=== PATIENT | male | born 1960 | race Caucasian/White ===

== ENCOUNTER 2019-02-06 14:56 | Emergency (ER) | payer BC, OTHER ==
[2019-02-06 14:59] VITALS: BP 145/82
--- NOTE | 2019-02-06 15:09 | EDM.PDOC ---
ED HPI GENERAL MEDICAL PROBLEM - General Chief Complaint: Upper Extremity Injury/Pain Stated Complaint: right shoulder pain Time Seen by Provider: 02/06/19 15:00 Source of Information: Reports: Patient, Old Records ([facility] EMR. No paper hospital chart available.) History Limitations: Reports: No Limitations - History of Present Illness INITIAL COMMENTS - FREE TEXT/NARRATIVE: The patient was brought to the emergency room via transport vehicle from [facility] for evaluation of a Workmen's Compensation injury, which occurred at about 14: 00 hours this afternoon. Patient was pulling on a torque wrench when he heard a sudden "pop" in his right shoulder with additional right superior chest wall pain, which he rates at 8/10. The patient did have ice packs applied at [facility] with no additional medications or treatment prior to arrival. He has not injured these areas in the past. No history of fall, injury, paresthesias, neurological deficits, etc. The patient denies any other chest pain/pressure, heart flutter, dizziness, orthostasis, orthopnea, diaphoresis, paresthesias, recent decreased exercise tolerance, or any other anginal-type symptoms. No recent history of abdominal pain, heartburn, nausea, diarrhea, melena, gross hematochezia, or any food intolerance, including fatty foods, etc.. His arthritis is otherwise stable. He denies any gross hematuria, colic, or other UTI symptoms. The patient also denies any recent fever, cough, wheezing, dyspnea , etc.. Onset: Today, Sudden Onset Date: 02/06/19 Onset Time: 14:00 Duration: Constant Location: Reports: Chest (As above), Upper Extremity, Right, Radiates to (As above). Denies: Head, Face, Neck, Abdomen, Back, Pelvis, Upper Extremity, Left , Lower Extremity, Left, Lower Extremity, Right, Generalized Quality: Reports: Same as Previous Episode, Sharp Severity: Moderate Improves with: Reports: Rest Worsens with: Reports: Movement Context: Reports: Trauma (As above) Associated Symptoms: Denies: Confusion, Chest Pain, Cough, Diaphoresis, Fever/ Chills, Headaches, Loss of Appetite, Malaise, Nausea/Vomiting, Rash, Seizure, Shortness of Breath, Syncope, Weakness Treatments FELT CHECKER: Reports: Cold Therapy. Denies: Acetaminophen, Aspirin, NSAIDS Right Shoulder Pain Score (Numeric/FACES): 8 - Related Data Allergies Allergy/AdvReac Type Severity Reaction Status Date / Time No Known Allergies Allergy Verified 02/06/19 15:00 Home Meds: Home Meds Albuterol Sulfate [Proair Hfa] 2 puff INH Q6HR PRN 02/04/16 [History] Fenofibrate Nanocrystallized [Fenofibrate] 145 mg PO DAILY 02/04/16 [History] Multivitamin [Multi-Vitamin Daily] 1 cap PO DAILY 02/04/16 [History] Naproxen Sodium [Aleve] 440 mg PO DAILY 02/04/16 [History] Omeprazole [Prilosec] 20 mg PO ACBREAKFAST 02/04/16 [History] amLODIPine [Norvasc] 10 mg PO DAILY 02/04/16 [History] Past Medical History HEENT History: Reports: Allergic Rhinitis. Denies: Cataract, Glaucoma, Hard of Hearing, Impaired Vision, Macular Degeneration Cardiovascular History: Reports: High Cholesterol, Hypertension, Other (See Below). Denies: Afib, Aneurysm, Arrhythmia, Blood Clots/VTE/DVT, CAD, Heart Failure, Heart Murmur, ND, Syncope Other Cardiovascular History: Dyslipidemia. Gastrointestinal History: Reports: Colon Polyp, GERD, Other (See Below) Other Gastrointestinal History: History of unknown type of colonic polyps excised on 05/21/09. Genitourinary History: Reports: BPH Musculoskeletal History: Reports: Arthritis, Back Pain, Chronic, Gout, Neck Pain , Chronic, Osteoarthritis. Denies: Fracture, RA, SLE - Infectious Disease History Infectious Disease History: Reports: Other (See Below) Other Infectious Disease History: West Nile virus diagnosed on 12/06/08. - Past Surgical History GI Surgical History: Reports: Colonoscopy, Polypectomy, Other (See Below) Other GI Surgeries/Procedures: Last colonoscopy on 02/05/16 was normal with previous excision of colonic polyps of unknown type on 05/21/09. Musculoskeletal Surgical History: Reports: Hip Replacement, Joint Replacement, Other (See Below) Other Musculoskeletal Surgeries/Procedures:: Left hip THC in 2007 Social & Family History - Family History Oncologic: Reports: Colon - Tobacco Use Smoking Status *Q: Former Smoker Tobacco Use Within Last Twelve Months: No Years of Tobacco use: 12 Packs/Tins Daily: 0.1 Used Tobacco, but Quit: Yes Month/Year Tobacco Last Used: Chewed about one can of tobacco per week between ages 17 and 29. Smoking Cessation Information Provided To Patient: No Second Hand Smoke Exposure: No Second Hand Smoke Education Provided: No - Living Situation & Occupation Living situation: Reports: (September 1993. No children), with Family Occupation: Employed ([employer]) Review of Systems - Review of Systems Review Of Systems: ROS reveals no pertinent complaints other than HPI. ED EXAM, GENERAL - Physical Exam Exam: See Below Exam Limited By: No Limitations General Appearance: Alert, WD/WN, No Apparent Distress Head: Atraumatic, Normocephalic. No: Facial Swelling, Facial Tenderness, Sinus Tenderness Neck: Normal Inspection, Supple, Non-Tender, Full Range of Motion. No: Lymphadenopathy (L), Lymphadenopathy (R), Thyromegaly Respiratory/Chest: No Respiratory Distress, Lungs Clear, Normal Breath Sounds, No Accessory Muscle Use. No: Chest Non-Tender (Moderate palpation pain over the MCL and mid infraclavicular area with no crepitation, deformity, ecchymosis , swelling, etc.), Pleural Rub, Retractions Cardiovascular: Normal Peripheral Pulses, Regular Rate, Rhythm, No Edema, No Gallop, No JVD, No Murmur, No Rub. No: Gallop/S3, Gallop/S4, Friction Rub Peripheral Pulses: 2+: Radial (L), Radial (R) GI/Abdominal: Normal Bowel Sounds, Soft, Non-Tender, No Organomegaly, No Distention, No Abnormal Bruit, No Mass, Pelvis Stable. No: Guarding (Male) Exam: Deferred Rectal (Males) Exam: Deferred Back Exam: Normal Inspection, Full Range of Motion. No: CVA Tenderness (L), CVA Tenderness (R), Muscle Spasm Extremities: No Pedal Edema, Normal Capillary Refill, Arm Pain (Mild to moderate palpation pain over the anterior joint space of the right shoulder with no crepitation, effusion, deformity, subluxation, etc.), Limited Range of Motion (Mild in right shoulder secondary to discomfort, however patient is able to abduct his arm/hand to the left shoulder). No: Non-Tender, Joint Swelling, Armond's Sign, Increased Warmth Neurological: Alert, Oriented, CN II-XII Intact, Normal Cognition, Normal Gait, Normal Reflexes, No Motor/Sensory Deficits Psychiatric: Normal Affect, Normal Mood Skin Exam: Warm, Dry, Intact, Normal Color, No Rash. No: Diaphoretic, Wound/ Incision Lymphatic: No Adenopathy Course - Vital Signs Last Recorded V/S: Last Vital Signs Temp 37.1 C 02/06/19 14:56 Pulse 76 02/06/19 14:56 Resp 20 02/06/19 14:56 BP 145/82 H 02/06/19 14:56 Pulse Ox 100 02/06/19 14:56 Vital Signs - 24 hr 02/06/19 14:56 Temperature [ 37.1 C Oral] Pulse, 76 Peripheral [ Left Pulse Oximetry] Respiratory 20 Rate Blood Pressure 145/82 H [Left Upper Arm ] O2 Sat by Pulse 100 Oximetry - Orders/Labs/Meds Orders: Active Orders 24 hr Category Date Time Status Ribs 2V w Chest Rt [CR] Stat Exams 02/06/19 15:10 Ordered Shoulder Comp Rt [CR] Stat Exams 02/06/19 15:10 Ordered Obtain Past Medical Record [OM.PC] Routine Oth 02/06/19 15:09 Active Labs: None Meds: None - Radiology Interpretation Free Text/Narrative:: X-rays of the right shoulder, complete, shows evidence of mild osteophytic changes but no evidence of fracture, dislocation, etc. X-rays of the right ribs, 2 views, including one view of the chest shows no evidence of pneumothorax, pulmonary infiltrates, rib fracture, etc. Departure - Departure Time of Disposition: 16:00 Disposition: Home, Self-Care 01 Condition: Good Clinical Impression: Sprain and strain, Dyslipidemia, Peptic reflux disease Hypertension Qualifiers: Hypertension type: essential hypertension Qualified Code(s): I10 - Essential ( primary) hypertension Osteoarthritis Qualifiers: Osteoarthritis location: multiple joints Osteoarthritis type: primary Qualified Code(s): M15.0 - Primary generalized (osteo)arthritis - Discharge Information *PRESCRIPTION DRUG MONITORING PROGRAM REVIEWED*: Not Applicable *COPY OF PRESCRIPTION DRUG MONITORING REPORT IN PATIENT NGA: Not Applicable Instructions: Shoulder Pain, [id number], Muscle Strain, [id number] Referrals: PCP,Unknown [Ordering Only Provider] - Forms: ED Department Discharge Additional Instructions: 1. Followup with your regular provider in 7 days as directed. Repeat x-rays versus additional MRI of your right shoulder may be ordered at that time depending on your symptoms, etc. Bring these discharge instructions with you to that visit. 2. Tylenol 650 mg by mouth every 4 hours when necessary as directed. 3. BenGay or equivalent, heating pad, and/or ice packs as directed. 4. Work excuse- See Form 5. Limited use of your right arm as discussed, including 10 pound lifting restriction, etc. 6. Immediately after this visit verify that your cellular telephone's voicemail has been activated and is empty. Also verify that your home telephone 's answering machine is operating properly and has space to receive messages. Note that it is sometimes necessary for us to be able to contact you at a later date to discuss your medical care. 7. Please remember that we are ALWAYS here for you and want to answer any questions you may have. Feel free to call the hospital any time and we call you back ONELIA. - Problem List & Annotations (1) Sprain and strain SNOMED Code(s): 235367930 Code(s): T14.8XXA - OTHER INJURY OF UNSPECIFIED BODY REGION, INITIAL ENCOUNTER Status: Acute Priority: High Onset Date: 02/06/19 Annotation/ Comment:: Likely muscle sprain of both his right shoulder and superior anterior chest wall region. Various therapeutic options were discussed with the patient, who did not wish to have IM Toradol or IM Depo-Medrol. Symptomatic relief as per discharge instructions. Workmen's Compensation and [employer] work excuse forms were completed. 50 restrictions were discussed. Close follow-up by regular provider with consideration of repeat x-rays versus MRI of the right shoulder depending on his clinical course. (2) Hypertension SNOMED Code(s): 58877780 Code(s): I10 - ESSENTIAL (PRIMARY) HYPERTENSION Status: Chronic Priority : Medium Annotation/Comment:: Mildly elevated in the emergency room, however overall stable. Continue to observe closely by his regular provider. Qualifiers: Hypertension type: essential hypertension Qualified Code(s): I10 - Essential (primary) hypertension (3) Osteoarthritis SNOMED Code(s): 691308596 Code(s): M19.90 - UNSPECIFIED OSTEOARTHRITIS, UNSPECIFIED SITE Status: Chronic Priority: Medium Annotation/Comment:: Otherwise stable by history with additional history of gout as above. Qualifiers: Osteoarthritis location: multiple joints Osteoarthritis type: primary Qualified Code(s): M15.0 - Primary generalized (osteo)arthritis (4) Dyslipidemia SNOMED Code(s): 350867507 Code(s): E78.5 - HYPERLIPIDEMIA, UNSPECIFIED Status: Chronic Priority: Medium Annotation/Comment:: Currently under therapy. (5) Peptic reflux disease SNOMED Code(s): 704150582 Code(s): K21.9 - GASTRO-ESOPHAGEAL REFLUX DISEASE WITHOUT ESOPHAGITIS Status: Chronic Priority: Medium Annotation/Comment:: Stable by history with current medical therapy. Patient is tolerating Aleve well. - Problem List Review Problem List Initiated/Reviewed/Updated: Yes - My Orders Last 24 Hours: My Active Orders 02/06/19 15:09 Obtain Past Medical Record [OM.PC] Routine 02/06/19 15:10 Ribs 2V w Chest Rt [CR] Stat Shoulder Comp Rt [CR] Stat - Assessment/Plan Last 24 Hours: My Active Orders 02/06/19 15:09 Obtain Past Medical Record [OM.PC] Routine 02/06/19 15:10 Ribs 2V w Chest Rt [CR] Stat Shoulder Comp Rt [CR] Stat Assessment:: As above Plan: As above. Extensive precautions were given to the patient, who is in agreement with the treatment plan. See Patient Instructions for further treatment and plan.
== END 2019-02-06 16:00 | disposition home or self-care (01) ==
LOC: LL.ED 14:56
DX: S43.401A Unspecified sprain of right shoulder joint, initial encounter (principal); I10 Essential (primary) hypertension; M15.0 Primary generalized (osteo)arthritis; K21.9 Gastro-esophageal reflux disease without esophagitis; E78.5 Hyperlipidemia, unspecified; Z87.891 Personal history of nicotine dependence; Z79.899 Other long term (current) drug therapy; X50.9XXA Other and unspecified overexertion or strenuous movements or postures, initial encounter
CPT/HCPCS: 71101-RT; 73030-RT; 99283-25

== ENCOUNTER 2023-07-28 08:21 | Day surgery (SDC) | payer BC, MEDICARE ==
[~2023-07-28 08:21] MED LIST: Midazolam 1 MG/ML 2 ML SDV ONE; Propofol 200 MG/20 ML SDV ONE
[2023-07-28] MEDS ORDERED: Sodium Chloride 0.9% 10 ML Syringe FLUSH PRN (08:30)
[2023-07-28] MEDS: Lactated Ringers 1,000 ML IV SCH (08:46)
[2023-07-28 14:08] VITALS: BP 141/79; PULSE 73
== END 2023-07-28 10:50 | disposition home or self-care (01) ==
LOC: LL.SDS 08:21
PROVIDERS: ATTEND Surgery
DX: Z12.11 Encounter for screening for malignant neoplasm of colon (principal); D12.0 Benign neoplasm of cecum; K21.9 Gastro-esophageal reflux disease without esophagitis; M10.9 Gout, unspecified; Z80.0 Family history of malignant neoplasm of digestive organs; Z79.899 Other long term (current) drug therapy
CPT/HCPCS: 00812; 88305; J2250; J2704; J7120